=== PATIENT | male | born 1995 | race Caucasian/White ===

== ENCOUNTER 2017-06-25 19:56 | Emergency (ER) | payer OTHER ==
[2017-06-25] MEDS: MORPHINE SULFATE 10 MG/ML VIAL. IM (20:50)
== END 2017-06-25 21:26 | disposition home or self-care (01) ==
LOC: ER 19:56
DX: M25.511 Pain in right shoulder (principal); Z88.0 Allergy status to penicillin
CPT/HCPCS: 29105; 73030; 96372; 99284-25; J2270

== ENCOUNTER → 2017-10-14 | Outpatient (CLI) | payer OTHER ==
[2017-10-14] MEDS: LIDOCAINE 1% Multi-Dose 20 ML VIAL. ID (12:01)
[2017-10-14] MEDS: GADOBUTROL 7.5 MMOL/7.5 ML VIAL INT ART (12:01)
[2017-10-14] MEDS: IOHEXOL 300 MG/ML 50 ML VIAL. INT ART (12:01)
== END | disposition home or self-care (01) ==
LOC: KCIC 10:24
DX: S43.004A Unspecified dislocation of right shoulder joint, initial encounter (principal); X58.XXXA Exposure to other specified factors, initial encounter; Y93.89 Activity, other specified; Y92.89 Other specified places as the place of occurrence of the external cause; Y99.8 Other external cause status
CPT/HCPCS: 73040; 73222; A9585; Q9967